=== PATIENT | male | born 1975 | race African-American/Black ===

== ENCOUNTER 2020-09-15 20:54 | Emergency (ER) | payer SELFPAY ==
[~2020-09-15] VITALS: Ht 185.4 cm; Wt 90.7 kg
[2020-09-15 22:56] VITALS: BP 117/60
[2020-09-15] MEDS ORDERED: KETOROLAC TROMETH 60MG/2ML VIAL IM ONE (23:15)
[2020-09-15] MEDS ORDERED: HYDROcodone-ACET 10/325MG TAB PO ONE (23:15)
[2020-09-15] MEDS ORDERED: ONDANSETRON ODT 4 MG TAB PO ONE (23:15)
== END 2020-09-16 00:07 | disposition home or self-care (01) ==
LOC: EDBD 20:54 → ER 21:01
DX: M25.512 Pain in left shoulder (principal); V49.9XXA Car occupant (driver) (passenger) injured in unspecified traffic accident, initial encounter; Y93.89 Activity, other specified; Y92.89 Other specified places as the place of occurrence of the external cause; Y99.8 Other external cause status
CPT/HCPCS: 70450; 70486; 71250; 72125; 73502; 73562; 74176; 96372; 99285; J1885; Q0162